=== PATIENT | female | born 1965 | race Caucasian/White ===

== ENCOUNTER → 2016-08-03 | Outpatient (CLI) | payer BC ==
[~2016-08-03] MED LIST: ASPI-435 PO; ATEN50TA8 PO; ATV/1 PO; CHOL100027 PO; DICY10CA12 PO; FAMO40TA6 PO; LEVO150T PO; MULT-506 PO; OMEG10007 PO; SUCR1TAB PO; [UNRECOGNIZED DRUG - CODE] PO
[2016-08-03 13:14] LABS: CHOLESTEROL/HDL RATIO 7.1
== END | disposition home or self-care (01) ==
LOC: C.LABPBG 08:06
PROVIDERS: ATTEND Nurse Practitioner Adult Health
DX: E78.5 Hyperlipidemia, unspecified (principal)

== ENCOUNTER → 2016-08-10 | Outpatient (CLI) | payer BC ==
[~2016-08-10] MED LIST changes: +PERFLUTREN LIPID MICROSPHERE (DEFINITY) IV ONE
--- NOTE | 2016-08-10 13:36 | EXERCISE STRESS ECHO ---
*NOTICE TO RECEIVING LIBERTARIAN AGENCY This information is strictly Confidential and protected under [place] law. [place] law prohibits you from making any further disclosure of this information unless further disclosure is expressly permitted by the written consent of the person to whom it pertains or is authorized by law. A general authorization for the release of medical or other information is not sufficient for this purpose. Hospital accepts no responsibility if the information is made available to any other person, INCLUDING THE PATIENT. Interpretation Summary * Name: OTILIA APODACA Study Date: 08/10/2016 08:52 AM BP: 144/86 mmHg * Patient Location: [facility] HR: 67 * : 1965 (M/d/yyyy) Gender: Female Height: 64 in * Age: 51 yrs Ethnicity: [place] Weight: 244 lb * Ordering Physician: Radames Miles * Referring Physician: Radames Miles * Performed By: Melisa Yepez * * Reason For Study: Chest Pain * BSA: 2.1 m2 * This was a normal stress echocardiogram. * The left ventricular ejection fraction increases normally with stress. The left ventricular end-systolic cavity size reduces post-stress (normal response). The left ventricular wall motion with stress is normal. * Exercise capacity is above average. * Baseline ECG was essentially normal. No symptoms were noted. * The stress ECG response was normal * No arrhythmia were noted with stress. * -- Conclusions -- * Normal bi-ventricular function * Grossly normal valvular structure and function. * The study was technically difficult. Procedure Details * ECHOEX, CPT #[id number] * ECHO DOPPLER, CPT #[id number] * ECHO COLOR FLOW, CPT #[id number] * The study was technically difficult with many images being suboptimal in quality. * A contrast injection of Definity was performed to improve assessment of LV function. * Contrast was injected into an intravenous site in the right arm. * One vial of Definity ultrasound contrast was diluted in normal saline to a total volume of 10 ml. A total of '5.5' ml of solution was administered during imaging. * Lot # [id number] of Definity utilized for procedure. * Expiration date 07/29. * The attending nurse who injected the contrast agent was YESSENIA COLES RN. Left Ventricular Findings with Stress * Normal bi-ventricular function * Grossly normal valvular structure and function. * The study was technically difficult. Left Ventricle * The left ventricle is grossly normal size. * There is mild concentric left ventricular hypertrophy. * Ejection Fraction = 55-60%. * Left ventricular systolic function is normal. * Resting wall motion: Normal. Stress wall motion: Appropriate increase in Left ventricular systolic function and decrease in cavity size. No stress induced segmental wall motion abnormalities. Right Ventricle * The right ventricle is mildly dilated. Atria * The left atrial size is normal. * The right atrium is mildly dilated. * The interatrial septum is intact with no evidence for an atrial septal defect. Mitral Valve * The mitral valve is normal in structure and function. * Significant mitral regurgitation is absent. Tricuspid Valve * The tricuspid valve is normal in structure and function. * Significant tricuspid regurgitation is absent. Aortic Valve * The aortic valve is not well visualized. * The aortic valve is normal in structure and function. * There is no significant aortic regurgitation. Pulmonic Valve * The pulmonary valve is inadequately visualized, but the Doppler data is adequate for interpretation. * There is no significant pulmonary regurgitation. Great Vessels * The aortic root is normal size. * No obvious dissection could be visualized. * The pulmonary artery is not well visualized, but is probably normal size. Pericardium * There is no pericardial effusion. Stress Parameters * Rest heart rate was '67' BPM. * Rest blood pressure was '144/86' * Maximum heart rate achieved was 166 bpm. * Maximum heart rate was 97 % of maximum age-predicted heart rate. * Maximum blood pressure was '200/70' * Total exercise time was '8:30' * Maximum exercise MET level achieved was '10.1' METS * Maximum treadmill speed was '3.40' miles per hour. * Maximum treadmill elevation was '14.00'% grade. * Exercise was terminated due to 'target heart rate achieved.' * Normal blood pressure response to exercise. * Patient had no symptoms during exercise. Right Ventricle * The right ventricular wall motion is normal. MMode 2D Measurements and Calculations IVSd 1.4 cm IVSs 1.6 cm LVIDd 4.0 cm LVIDs 2.8 cm LVPWd 1.1 cm LVPWs 1.4 cm IVS/LVPW 1.3 FS 30.3 % EDV(Teich) 68.0 ml ESV(Teich) 28.4 ml EF(Teich) 58.2 % EDV(cubed) 61.7 ml ESV(cubed) 20.9 ml EF(cubed) 66.1 % % IVS thick 14.3 % % LVPW thick 24.6 % LV mass(C)d 178.8 grams LV mass(C)dI 84.0 grams/m\S\2 LV mass(C)s 145.1 grams LV mass(C)sI 68.2 grams/m\S\2 CO(Teich) 2.7 l/min CI(Teich) 1.3 l/min/m\S\2 SV(Teich) 39.6 ml SI(Teich) 18.6 ml/m\S\2 CO(cubed) 2.8 l/min CI(cubed) 1.3 l/min/m\S\2 SV(cubed) 40.8 ml SI(cubed) 19.2 ml/m\S\2 ACS 1.2 cm LA dimension 3.6 cm asc Aorta Diam 2.6 cm LVOT diam 2.1 cm LVOT area 3.5 cm\S\2 LVAd ap4 28.1 cm\S\2 LVLd ap4 7.5 cm EDV(MOD-sp4) 87.0 ml LVAs ap4 17.0 cm\S\2 LVLs ap4 6.6 cm ESV(MOD-sp4) 36.0 ml EF(MOD-sp4) 58.6 % LVAd ap2 18.5 cm\S\2 LVLd ap2 6.7 cm EDV(MOD-sp2) 42.0 ml LVAs ap2 10.4 cm\S\2 LVLs ap2 5.7 cm ESV(MOD-sp2) 16.0 ml EF(MOD-sp2) 61.9 % CO(MOD-sp4) 3.5 l/min CI(MOD-sp4) 1.6 l/min/m\S\2 SV(MOD-sp4) 51.0 ml SI(MOD-sp4) 24.0 ml/m\S\2 CO(MOD-sp2) 1.8 l/min CI(MOD-sp2) 0.83 l/min/m\S\2 SV(MOD-sp2) 26.0 ml SI(MOD-sp2) 12.2 ml/m\S\2 Doppler Measurements and Calculations MV E max marisa 68.6 cm/sec MV A max marisa 59.6 cm/sec MV E/A 1.1 MV dec time 0.20 sec Ao V2 max 115.8 cm/sec Ao max PG 5.4 mmHg Ao max PG (full) 2.1 mmHg RADHA(V,A) 2.7 cm\S\2 RADHA(V,D) 2.7 cm\S\2 LV V1 max PG 3.3 mmHg LV V1 mean PG 1.3 mmHg LV V1 max 90.7 cm/sec LV V1 mean 50.1 cm/sec LV V1 VTI 21.2 cm SV(LVOT) 74.0 ml SI(LVOT) 34.8 ml/m\S\2 PA V2 max 64.7 cm/sec PA max PG 1.7 mmHg
== END | disposition home or self-care (01) ==
LOC: C.CPL 08:18
PROVIDERS: ATTEND Internal Medicine
DX: R07.9 Chest pain, unspecified (principal)

== ENCOUNTER → 2017-05-08 | Outpatient (CLI) | payer BC ==
[~2017-05-08] MED LIST changes: -PERFLUTREN LIPID MICROSPHERE (DEFINITY) IV ONE
[2017-05-08 12:18] LABS: BASO % 0.3 %; BASO ABS # 0.02 K/uL (0-0.2); COMPLETE YES; EOS % 2.6 %; HEMATOCRIT 42.5 % (37-47); IG% 0.2 %; LYMPH % 27.5 %; LYMPH ABS # 1.79 K/uL (1.2-3.4); MEAN CELL VOLUME 92.4 fL (80-100); MEAN CORPUSCULAR HEMOGLOBIN 32.8 pg (25-34); MEAN CORPUSCULAR HGB CONC 35.5 g/dl (32-36); MEAN PLATELET VOLUME 8.8 fL (7.4-10.4); MONO % 4.8 %; NEUT % 64.6 %; PLATELET COUNT 269 K/uL (130-400); WHITE BLOOD COUNT 6.52 K/uL (4.8-10.8)
[2017-05-08 13:30] LABS: ALT/SGPT 32 U/L (12-78); BLOOD UREA NITROGEN 14 mg/dl (7-18); BUN/CREATININE RATIO 17.1 (10-20); CALCIUM 9.1 mg/dl (8.5-10.1); CARBON DIOXIDE 26 mmol/L (21-32); CHLORIDE 106 mmol/L (98-107); CHOLESTEROL 167 mg/dl (0-200); CREATININE 0.84 mg/dl (0.60-1.20); GLUCOSE 86 mg/dl (70-99); POTASSIUM 4.1 mmol/L (3.5-5.1); SODIUM 140 mmol/L (136-145)
[2017-05-08 13:41] LABS: ALB/GLOB RATIO 0.9 (0.9-2); ALKALINE PHOSPHATASE 111 U/L (45-117); AST/SGOT 19 U/L (15-37); CHOLESTEROL/HDL RATIO 5.4; HDL CHOLESTEROL 31 mg/dl; LDL CHOLESTEROL CALCULATED 104 mg/dl; THYROID STIMULATING HORMONE 0.601 uIu/ml (0.300-4.500); TRIGLYCERIDES 160 mg/dl (0-150); VERY LOW DENSITY LIPOPROT CALC 32 mg/dl
[2017-05-08 14:07] LABS: LYME DISEASE AB IGG NEG (NEG); LYME DISEASE AB IGM NEG (NEG)
== END | disposition home or self-care (01) ==
LOC: C.LABPBG 11:06
PROVIDERS: ATTEND Nurse Practitioner Adult Health
DX: R74.8 Abnormal levels of other serum enzymes (principal); E03.9 Hypothyroidism, unspecified; I10 Essential (primary) hypertension; L98.9 Disorder of the skin and subcutaneous tissue, unspecified; E78.5 Hyperlipidemia, unspecified

== ENCOUNTER → 2017-10-16 | Outpatient (CLI) | payer BC ==
[2017-10-16 14:27] LABS: HEMOGLOBIN A1C 4.7 % (4.5-5.6)
[2017-10-16 14:36] LABS: ALBUMIN 3.6 gm/dl (3.4-5.0); ALT/SGPT 27 U/L (12-78); AST/SGOT 16 U/L (15-37); BLOOD UREA NITROGEN 20 mg/dl (7-18); CALCIUM 8.9 mg/dl (8.5-10.1); CARBON DIOXIDE 27 mmol/L (21-32); CHOLESTEROL 121 mg/dl (0-200); CREATININE 0.83 mg/dl (0.60-1.20); GLUCOSE,FASTING 100 mg/dl (70-99); POTASSIUM 4.2 mmol/L (3.5-5.1); SODIUM 141 mmol/L (136-145)
[2017-10-16 14:46] LABS: ALKALINE PHOSPHATASE 90 U/L (45-117); LDL CHOLESTEROL CALCULATED 75 mg/dl; TOTAL PROTEIN 6.8 gm/dl (6.4-8.2)
== END | disposition home or self-care (01) ==
LOC: C.LABPBG 07:50
PROVIDERS: ATTEND Physician Assistant
DX: Z00.00 Encounter for general adult medical examination without abnormal findings (principal); E78.5 Hyperlipidemia, unspecified; E03.9 Hypothyroidism, unspecified; E55.9 Vitamin D deficiency, unspecified